=== PATIENT | male | born 1945 | race Caucasian/White ===

== ENCOUNTER 2020-02-23 06:41 | Outpatient (CLI) | payer OTHER, SELFPAY ==
[2020-02-23 17:06] LABS: SARS-CoV-2 RNA PCR Negative
== END 2020-02-23 06:42 | disposition home or self-care (01) ==
LOC: ANHCOVIDDT 06:42
PROVIDERS: PCP Family Medicine Adolescent Medicine; Visit Provider Internal Medicine Gastroenterology
DX: Z01.818 Encounter for other preprocedural examination (principal); Z11.59 Encounter for screening for other viral diseases
CPT/HCPCS: 87635; C9803; U0003

== ENCOUNTER 2020-02-26 01:53 | Day surgery (SDC) | payer OTHER, SELFPAY ==
[2019-12-22 13:43] VITALS: BMI 28.4
--- NOTE | 2020-02-20 13:26 | PC.NURSE ---
Patient completed interview in December. States no changes in health history since then. Updated on time and new regulations and covid testing.
[2020-02-26 06:32] VITALS: BP 139/81; PULSE 81; RESP 16; TEMP 36.5; O2SAT 97; BMI 28.8
[2020-02-26] MEDS: LACTATED RINGERS 1,000 ML 150 ML IV CONT (06:50)
--- NOTE | 2020-02-26 07:06 | WPDANESEPPF ---
Anes - Initial Pre Proc Eval Procedure: Operation Date: 02/26/20 07:30 Proposed Procedures p Screening Colonoscopy - Will Marlow MD Date/Time: 02/26/20 07:06 Surgeon: Will Marlow MD Pre Op Diagnosis: Neoplasm Screening Patient Data Age: 74 Gender: M Height: 6 ft Weight: 96.5 kg Last Vital Signs Temp 36.5 C 02/26/20 06:32 Pulse 81 02/26/20 06:32 Resp 16 02/26/20 06:32 BP 139/81 02/26/20 06:32 Pulse Ox 97 02/26/20 06:32 Allergies Allergy/AdvReac Type Severity Reaction Status Date / Time No Known Allergies Allergy Unknown Verified 02/26/20 06:30 Home Medications Medication Instructions Recorded Confirmed Type multivitamin [Daily Multiple] 1 tablet PO DAILY 12/22/19 02/26/20 History Patient hx anesthesia problems: none Family hx anesthesia problems: none Anes - Eval Final PreProcedure Day of Procedure 02/26/20 07:06 Patient weight: overweight Heart: regular rate and rhythm Lungs: clear to auscultation Airway: Mallampati scale class 1 Neurological: alert and oriented Last oral intake: >/= 8 hours ASA classification: II Emergent: no Anesthetic plan: proceed Anesthesia type and monitoring: general GIVS and standard monitoring Informed Consent: The patient's anesthetic plan and its attendant risks and benefits were discussed with the patient/family/POA. Questions were solicited and answers provided to the satisfaction of the patient/family/POA.
--- NOTE | 2020-02-26 07:39 | WPDGICN ---
Assessment and Plan Assessment and plan (1) Encounter for screening for colorectal malignant neoplasm: Code(s): Z12.11 - Encounter for screening for malignant neoplasm of colon; Z12.12 - Encounter for screening for malignant neoplasm of rectum Status: Acute Assessment and Plan: Screening colonoscopy advised because of age. Colonoscopy will be performed separately. GI Consult Note Consult date/time: 02/26/20 07:39 HPI: Pierre Yost is a 74 year old male Seen in evaluation at the request of Dr. Gordon Bob. Patient presents for neoplasia screening. His current weight appetite bowel movements are normal. He denies abdominal pain. His bowel habits are regular. He denies blood in his stools. His last colonoscopy was 12 years ago. Family history is noncontributory. Review of Systems Review of Systems: All systems reviewed & are unremarkable except as noted in HPI and below Meds Home Medications and Allergies Home Medications Medication Instructions Recorded Confirmed Type multivitamin [Daily Multiple] 1 tablet PO DAILY 12/22/19 02/26/20 History Allergies Allergy/AdvReac Type Severity Reaction Status Date / Time No Known Allergies Allergy Unknown Verified 02/26/20 06:30 Vital Signs Vital Signs - 24 hr 02/26/20 06:32 Temperature 36.5 C Pulse Rate 81 Respiratory Rate 16 Blood Pressure 139/81 Pulse Oximetry 97 Exam Narrative: Exam Narrative: Physical exam reveals patient to be alert. Vital signs are stable. HEENT exam unremarkable. HEENT exam is anicteric. Lungs are clear to auscultation and percussion. Heart is without murmur or extra sounds. Abdominal exam bowel sounds are present soft nontender with no organomegaly. Digital external rectal exam is normal.
[2020-02-26 07:42] VITALS: BP 124/78; PULSE 69; RESP 16; O2SAT 99
[2020-02-26 07:52] VITALS: BP 124/86; PULSE 73; RESP 20; O2SAT 97
[2020-02-26 08:02] VITALS: BP 121/82; PULSE 67; RESP 18; O2SAT 97
== END 2020-02-26 08:23 | disposition home or self-care (01) ==
PROVIDERS: PCP Family Medicine Adolescent Medicine; Visit Provider Internal Medicine Gastroenterology
PROC: 0DJD8ZZ Inspection of Lower Intestinal Tract, Via Natural or Artificial Opening Endoscopic (ICD-10-PCS; CPT 45378; principal; 2020-02-26 07:30)
DX: Z12.11 Encounter for screening for malignant neoplasm of colon (principal); K57.30 Diverticulosis of large intestine without perforation or abscess without bleeding; K64.8 Other hemorrhoids
CPT/HCPCS: G0121; J2001; J2704; J7120

== ENCOUNTER 2021-02-05 08:55 | Outpatient (CLI) | payer OTHER, SELFPAY ==
--- NOTE | 2021-02-05 15:00 | NEURO_ITS ---
Impression: # Complains of numbness of feet. # Asymmetrical poor responses with neurogenic changes in bilateral EDB. # Findings compatible with neuropathy. # Clinical correlation recommended. Nerve Conduction Studies Anti Sensory Summary Table Stim Site NR Peak (ms) P-T Amp (?V) Site1 Site2 Delta-P (ms) Dist (cm) Justo (m/s) Left Sup Fibular Anti Sensory (Ant Lat Mall) Right Sup Fibular Anti Sensory (Ant Lat Mall) 14 cm 3.3 8.5 14 cm Ant Lat Mall 3.3 16.0 48 Left Sural Anti Sensory (Lat Mall) Calf 3.8 13.0 Calf Lat Mall 3.8 16.0 42 Right Sural Anti Sensory (Lat Mall) Calf 3.8 9.8 Calf Lat Mall 3.8 16.0 42 Motor Summary Table Stim Site NR Onset (ms) O-P Amp (mV) Site1 Site2 Delta-0 (ms) Dist (cm) Justo (m/s) Left Peroneal Motor (Vastus Med) Ankle 4.4 1.9 Popit Ankle 9.7 40.0 41 Popit 14.1 1.7 Right Peroneal Motor (Vastus Med) Ankle 4.5 2.4 Popit Ankle 9.4 38.0 40 Popit 13.9 1.9 Left Tibial Motor (Abd Apte Brev) Ankle 5.5 1.8 Knee Ankle 10.7 44.0 41 Knee 16.2 0.5 Right Tibial Motor (Abd Pate Brev) Ankle 5.2 3.7 Knee Ankle 11.1 42.0 38 Knee 16.3 2.4 F Wave Studies NR F-Lat (ms) L-R F-Lat (ms) Left Peroneal (Mrkrs) (EDB) 53.46 0.80 Right Peroneal (Mrkrs) (EDB) 54.25 0.80 Left Tibial (Mrkrs) (Abd Hallucis) 54.51 0.40 Right Tibial (Mrkrs) (Abd Hallucis) 54.91 0.40 EMG Side Muscle Nerve Root Ins Act Fibs Amp Dur Recrt Comment Right AntTibialis Dp Br Fibular L4-5 Nml Nml Nml Nml Nml Right Gastroc Tibial S1-2 Nml Nml Nml Nml Nml Right Fibularis Long Sup Br Fibular L5-S1 Nml Nml Nml Nml Nml Right Flex Dig Long Tibial L5-S2 Nml Nml Nml Nml Nml Right Ext Dig Brev Dp Br Fibular L5, S1 Nml Nml Nml >12ms Reduced Left AntTibialis Dp Br Fibular L4-5 Nml Nml Nml Nml Nml Left Gastroc Tibial S1-2 Nml Nml Nml Nml Nml Left Fibularis Long Sup Br Fibular L5-S1 Nml Nml Nml Nml Nml Left Flex Dig Long Tibial L5-S2 Nml Nml Nml Nml Nml Left Ext Dig Brev Dp Br Fibular L5, S1 Nml Nml Nml >12ms Reduced MTDD
== END 2021-02-05 08:56 | disposition home or self-care (01) ==
PROVIDERS: PCP Family Medicine Adolescent Medicine; Visit Provider Family Medicine Adolescent Medicine
DX: R94.131 Abnormal electromyogram [EMG] (principal)
CPT/HCPCS: 95886; 95910

== ENCOUNTER 2024-09-21 09:56 | Outpatient (CLI) | payer OTHER, SELFPAY ==
--- NOTE | ~2024-09-21 | XR_ITS ---
Clinical Indication: Cough PA and lateral views of the chest: Comparison: None Findings: The lungs are clear, without evidence of focal consolidation or pleural effusion. Cardiome diastinal silhouette is within normal limits. Bones and soft tissues are unremarkable. Impression: Normal chest. Reviewed, dictated and finalized at location . S ADMINISTRATOR Impression: Normal chest.
[2024-09-21 10:43] LABS: Alanine Aminotransferase 24 U/L (6-50); Albumin Level 4.2 g/dL (3.5-5.1); Alkaline Phosphatase 58 U/L (38-126); Anion Gap 3 mmol/L (4-12); Aspartate Amino Transferase 33 U/L (17-59); Bilirubin,Total 0.7 mg/dL (0.2-1.3); Blood Urea Nitrogen 18 mg/dL (9-20); Calcium 8.8 mg/dL (8.4-10.2); Carbon Dioxide 27 mmol/L (22-30); Chloride 109 mmol/L (98-107); Cholesterol 228 mg/dL (0-200); Estimated Glomerular Filt Rate > 60; Glucose 108 mg/dL (65-110); HDL Direct 57 mg/dL; Potassium 4.3 mmol/L (3.4-5.0); Sodium 139 mmol/L (137-145); Triglycerides 122 mg/dL (<150)
[2024-09-21 10:54] LABS: LDL Cholesterol Direct 122 mg/dL
== END 2024-09-21 09:57 | disposition home or self-care (01) ==
PROVIDERS: PCP Family Medicine Adolescent Medicine; Visit Provider Family Medicine Adolescent Medicine
DX: R05.3 Chronic cough (principal); G62.9 Polyneuropathy, unspecified; Z13.220 Encounter for screening for lipoid disorders
CPT/HCPCS: 36415; 71046; 80053; 80061

== ENCOUNTER 2025-10-08 11:34 | Outpatient (CLI) | payer OTHER, SELFPAY ==
--- OUTSIDE RECORDS SUMMARY | 2025-10-08 12:16 | XMS_ITS | Clinical Summary ---
Author Organization [facility] Address [facility] [address] [place] [address] Care Team Providers Care Internal Revenue Service Agent Name Role Phone Gordon Bob MD Primary Care Provider [phone] Allergies No known active allergies Medications Multiple Vitamins-Mineral s (MULTIVITAL OR) Fresh Start supplement. Active Social History Tobacco Use Types Packs/Day Years Used Date Smoking Tobacco: Never Assessed Sex and Gender Information Value Date Recorded Sex Assigned at Not on file Legal Sex Male 8:09 AM CDT Gender Identity Not on file Sexual Orientation Not on file Last Filed Vital Signs Vital Sign Reading Time Taken Comments Blood Pressure 140/60 11/12/2022 3:24 PM BIT GRINDER Pulse 100 11/12/2022 3:24 PM BIT GRINDER Temperature 36.8 C (98.2 F) 11/12/2022 3:24 PM BIT GRINDER Respiratory Rate 16 11/12/2022 3:24 PM BIT GRINDER Oxygen Saturation 98% 11/12/2022 3:24 PM BIT GRINDER Inhaled Oxygen Concentration - - Weight 97.1 kg (214 lb) 11/12/2022 3:24 PM BIT GRINDER Height 185.4 cm (6' 1) 11/12/2022 3:24 PM BIT GRINDER Body Mass Index 28.23 11/12/2022 3:24 PM BIT GRINDER Plan of Treatment Health Maintenance Due Date Last Done Comments Hepatitis C 1963 DTaP, Tdap and Td Vaccines ( 1 - Tdap) 1964 Pneumococcal Vaccine: 50+ Years (1 of 1 - PCV) 1996 Zoster Vaccines (2 of 3) 04/05/2014 02/08/2014 RSV Immunization or 60+ Years (1 - 1-dose 75+ series) 2021 COVID-19 Vaccine (3 - 2025- 6 season) 2025 01/13/2021, 12/16/2020 Influenza Adult (#1) 2025 07/09/2019, 07/16/2015, 07/04/2014 Hepatitis A Vaccines Aged Out No long er eligible based on patient's age to complete this topic Meningococcal B Vaccine Aged Out No l onger eligible based on patient's age to complete this topic Meningococcal Vaccine Aged Out No nadya nicholas eligible based on patient's age to complete this topic RSV Immunizations Under 20 Months Aged Out No longer eligible b ased on patient's age to complete this topic Insurance MEDICARE PART A [facility] Care Teams Internal Revenue Service Agent Relationship Specialty Start Date End Date Gordon Bob MD [address] [address] PCP - General FAMILY PRACTICE 11/12/22
--- OUTSIDE RECORDS SUMMARY | 2025-10-08 12:16 | XMS_ITS | Clinical Summary ---
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
[2025-10-08 12:30] LABS: Alanine Aminotransferase 22 U/L (6-50); Albumin Level 4.3 g/dL (3.5-5.1); Alkaline Phosphatase 59 U/L (38-126); Anion Gap 3 mmol/L (4-12); Aspartate Amino Transferase 29 U/L (17-59); Bilirubin,Total 0.8 mg/dL (0.2-1.3); Blood Urea Nitrogen 15 mg/dL (9-20); Calcium 9.0 mg/dL (8.4-10.2); Carbon Dioxide 29 mmol/L (22-30); Chloride 106 mmol/L (98-107); Cholesterol 255 mg/dL (0-200); Estimated Glomerular Filt Rate > 60; Glucose 108 mg/dL (65-110); HDL Direct 56 mg/dL; Potassium 4.4 mmol/L (3.4-5.0); Sodium 138 mmol/L (137-145); Total Protein 7.5 g/dL (6.3-8.2); Triglycerides 141 mg/dL (<150)
== END 2025-10-08 11:35 | disposition home or self-care (01) ==
PROVIDERS: PCP Family Medicine Adolescent Medicine; Visit Provider Family Medicine Adolescent Medicine
DX: E78.00 Pure hypercholesterolemia, unspecified (principal)
CPT/HCPCS: 36415; 80053; 80061